=== PATIENT | male | born 1970 | race American Indian/Alaskan Native ===

== ENCOUNTER 2017-01-30 00:50 | Emergency (ER) | payer OTHER ==
--- NOTE | 2017-01-30 08:56 | Emergency Department Report ---
ED Abdominal Pain HPI - General Chief Complaint: Abdominal Pain Stated Complaint: ABDOMINAL PAIN Time Seen by Provider: 01/30/17 08:49 Source: patient Mode of arrival: Ambulatory Limitations: No Limitations - History of Present Illness Initial Comments: Patient complains of left lower quadrant abdominal pain since 4:30 yesterday. He stated he vomited yesterday but is no longer nauseated. He denies diarrhea. He thinks he might of had a fever but did not measure his temperature. Head no signs of GI bleeding. His pain is largely resolved at this time however. MD Complaint: abdominal pain -: Gradual Location: LLQ Radiation: none Migration to: no migration Severity: moderate Quality: aching Consistency: intermittent Improves With: nothing Worsens With: nothing Associated Symptoms: denies other symptoms, nausea, vomiting - Related Data Previous Rx's Medication Instructions Recorded Last Taken Type traMADol [Ultram] 50 mg PO Q6HR PRN #10 tablet 01/30/17 Unknown Rx Allergies Allergy/AdvReac Type Severity Reaction Status Date / Time No Known Allergies Allergy Unverified 01/30/17 08:24 ED Review of Systems ROS: Stated complaint: ABDOMINAL PAIN Other details as noted in HPI Constitutional: denies: chills, fever Eyes: denies: eye pain, eye discharge, vision change ENT: denies: ear pain, throat pain Respiratory: denies: cough, shortness of breath, wheezing Cardiovascular: denies: chest pain, palpitations Endocrine: no symptoms reported Gastrointestinal: as per HPI, abdominal pain, nausea, vomiting. denies: diarrhea Genitourinary: denies: urgency, dysuria Musculoskeletal: denies: back pain, joint swelling, arthralgia Skin: denies: rash, lesions Neurological: denies: headache, weakness, paresthesias Psychiatric: denies: anxiety, depression Hematological/Lymphatic: denies: easy bleeding, easy bruising ED Past Medical Hx - Past Medical History Previous Medical History?: No - Social History Smoking Status: Unknown if ever smoked - Medications Home Medications: Home Medications Medication Instructions Recorded Confirmed Last Taken Type traMADol [Ultram] 50 mg PO Q6HR PRN #10 tablet 01/30/17 Unknown Rx ED Physical Exam - General Limitations: No Limitations General appearance: alert, in no apparent distress - Head Head exam: Present: atraumatic, normocephalic - Eye Eye exam: Present: normal appearance. Absent: scleral icterus - ENT ENT exam: Present: normal exam, mucous membranes moist - Neck Neck exam: Present: normal inspection - Respiratory Respiratory exam: Present: normal lung sounds bilaterally. Absent: respiratory distress - Cardiovascular Cardiovascular Exam: Present: regular rate, normal rhythm. Absent: systolic murmur, diastolic murmur, rubs, gallop - GI/Abdominal GI/Abdominal exam: Present: soft, normal bowel sounds. Absent: distended, tenderness, guarding, rebound, rigid - Rectal Rectal exam: Present: deferred - Extremities Exam Extremities exam: Present: normal inspection - Back Exam Back exam: Present: normal inspection - Neurological Exam Neurological exam: Present: alert, oriented X3, CN II-XII intact. Absent: motor sensory deficit - Psychiatric Psychiatric exam: Present: normal affect, normal mood - Skin Skin exam: Present: warm, dry, intact, normal color. Absent: rash ED Course Vital Signs 01/30/17 01/30/17 01/30/17 01:05 07:29 07:30 Temperature 98.7 F Pulse Rate 76 46 L 50 L Respiratory 18 14 9 L Rate Blood Pressure 148/85 114/69 O2 Sat by Pulse 99 100 99 Oximetry 01/30/17 01/30/17 01/30/17 07:46 08:00 08:16 Temperature Pulse Rate 46 L 44 L 49 L Respiratory 16 10 L 13 Rate Blood Pressure 114/69 114/69 151/79 O2 Sat by Pulse 96 99 97 Oximetry 01/30/17 01/30/17 01/30/17 08:30 08:46 09:00 Temperature Pulse Rate 49 L 54 L Respiratory 17 13 Rate Blood Pressure 151/79 122/70 122/70 O2 Sat by Pulse 96 96 99 Oximetry 01/30/17 01/30/17 01/30/17 09:04 09:16 09:30 Temperature 98.3 F Pulse Rate 50 L 53 L Respiratory 17 17 Rate Blood Pressure 131/71 122/70 O2 Sat by Pulse 97 97 Oximetry 01/30/17 01/30/17 01/30/17 10:06 10:15 10:30 Temperature Pulse Rate 51 L 46 L 49 L Respiratory 16 17 13 Rate Blood Pressure 142/76 133/72 131/75 O2 Sat by Pulse 99 97 99 Oximetry 01/30/17 01/30/17 10:46 11:00 Temperature Pulse Rate 47 L 46 L Respiratory 20 17 Rate Blood Pressure 127/69 123/78 O2 Sat by Pulse 96 95 Oximetry - Reevaluation(s) Reevaluation #1: Patient requested discharge from the nurse. On my reexamination is asymptomatic and actually eating barbecued potato chips. He was quite desirous of leaving. His CT results were explained to him and the need for follow-up. 01/30/17 12:15 ED Medical Decision Making - EKG Data -: EKG Interpreted by Me EKG shows normal: sinus rhythm, axis, intervals, QRS complexes, ST-T waves Rate: bradycardia - EKG Data When compared to previous EKG there are: no significant change Interpretation: other (inverted T waves noted in standard lead 2 and aVF and inverted P-wave consistent with low atrial rhythm.) - Radiology Data Radiology results: report reviewed interpreted by me: CT showed prostatic hypertrophy but nothing acute. Critical care attestation.: If time is entered above; I have spent that time in minutes in the direct care of this critically ill patient, excluding procedure time. ED Disposition Clinical Impression: Left lower quadrant pain, Prostatic hypertrophy Disposition: DC-01 TO HOME OR SELFCARE Is pt being admited?: No Does the pt Need Aspirin: No Condition: Stable Instructions: Abdominal Pain (ED), Benign Prostatic Hypertrophy (ED) Additional Instructions: Further evaluation for your enlarged prostate is recommended. Have given the something for pain if necessary. Return to the emergency department any acute change or problem. Prescriptions: traMADol [Ultram] 50 mg PO Q6HR PRN #10 tablet PRN Reason: Pain Referrals: PRIMARY CARE, [Primary Care Provider] - 3-5 Days Time of Disposition: 12:18
[2017-01-30] MEDS ORDERED: NACL 0.9% 1000 ML 1,000 ML IV ONE (09:12)
--- NOTE | 2017-01-30 09:17 | XRay Report ---
ROUTINE CHEST, TWO VIEWS: HISTORY: Bradycardia. The trachea, heart, mediastinal contour, lung le and bony thorax are unremarkable. IMPRESSION: Unremarkable chest x-ray.
--- NOTE | 2017-01-30 10:15 | Cat Scan Report ---
FINAL REPORT EXAM: CT ABDOMEN PELVIS W CON HISTORY: left lower quadrant pain TECHNIQUE: CT of the abdomen and pelvis with IV contrast. Coronal and sagittal reconstructed imaging provided. PRIORS: None currently available. FINDINGS: ABDOMEN: Stomach: Unremarkable. Liver: Unremarkable. Gallbladder: Unremarkable. Spleen: Unremarkable. Pancreas: Unremarkable. Adrenals: Unremarkable. Kidneys: Subcentimeter low-attenuation lesion in the upper cortex of the left kidney may represent a cyst but is too small to accurately characterize. Kidneys demonstrate symmetrical cortical enhancement. No hydronephrosis. No suspicious lesions. There is no abdominal aortic aneurysm. IVC is unremarkable. There is no periaortic or retroperitoneal adenopathy or mass. Mild to moderate stool. Terminal ileum is normal. Appendix is unremarkable. Large and small bowel loops do not demonstrate wall thickening or inflammatory changes. No obstructive pattern. No free air or free fluid. PELVIS: Small amount of free fluid is present within the pelvis more so on the right. Mildly enlarged heterogeneous prostate with punctate calcification. Bladder is unremarkable. There is no pelvic mass or adenopathy. Inguinal regions are unremarkable. Bones: No suspicious osseous lesions on this limited examination of the skeleton. Metastatic disease better evaluated with bone scan. IMPRESSION: Probable subcentimeter cysts in the upper left kidney. Too small to accurately characterize. Small amount of free fluid in the pelvis. Nonspecific. Large heterogeneous prostate. Otherwise, no acute findings.
[2017-01-30 12:32] VITALS: BP 128/86
== END 2017-01-30 12:37 | disposition home or self-care (01) ==
LOC: ED 00:50
DX: N40.0 Benign prostatic hyperplasia without lower urinary tract symptoms (principal); R10.32 Left lower quadrant pain
CPT/HCPCS: 36415; 71020; 74177; 84484; 93005; 93010; 96360; 99285; Q9967

== ENCOUNTER 2020-07-14 05:48 | Emergency (ER) | payer OTHER ==
--- NOTE | 2020-07-14 05:58 | Event Note ---
ED Screening Note Date of service: 07/14/20 Time: 05:56 ED Screening Note: Patient presents with suprapubic pain and dysuria x1 month. Pain described as sharp achy radiating from left flank to left groin. Patient denies fevers or chills there is no scrotal swelling or history of hernia. Patient is tolerating p.o. intake without nausea vomiting. T-max 97 7. This initial assessment/diagnostic orders/clinical plan/treatment(s) is/are subject to change based on patients health status, clinical progression and re- assessment by fellow clinical providers in the ED. Further treatment and workup at subsequent clinical providers discretion. Patient/guardian urged not to elope from the ED as their condition may be serious if not clinically assessed and managed. Initial orders include: cbc, cmp, ua
[2020-07-14 06:28] LABS: Basophils # (Auto) 0.1 K/mm3 (0.0-0.1); Basophils % (Auto) 0.5 % (0.0-1.8); Eosinophils # (Auto) 0.1 K/mm3 (0.0-0.4); Eosinophils % (Auto) 0.4 % (0.0-4.3); Hematocrit 44.5 % (35.5-45.6); Hemoglobin 14.1 gm/dl (11.8-15.2); Lymphocytes # (Auto) 1.2 K/mm3 (1.2-5.4); Lymphocytes % (Auto) 7.5 % (13.4-35.0); Mean Corpuscular HGB Conc 32 % (32-34); Mean Corpuscular Volume 82 fl (84-94); Monocytes # (Auto) 1.3 K/mm3 (0.0-0.8); Monocytes % (Auto) 8.1 % (0.0-7.3); Platelet Count 409 K/mm3 (140-440); Red Cell Distribution Width 13.6 % (13.2-15.2)
[2020-07-14 06:34] LABS: Bilirubin,Urine NEG (Negative); Blood,Urine LG (Negative); Color,Urine Amber (Yellow); Urobilinogen,Urine < 2.0 mg/dL (<2.0)
[2020-07-14 06:36] LABS: RBC,Urine > 182.0 /HPF (0.0-6.0); WBC,Urine > 182.0 /HPF (0.0-6.0)
[2020-07-14 06:42] LABS: Alanine Aminotransferase 19 units/L (7-56); Albumin 4.1 g/dL (3.9-5); BUN/Creatinine Ratio 10; Blood Urea Nitrogen 10 mg/dL (9-20); Calcium 8.8 mg/dL (8.4-10.2); Hemolysis Index 4
[2020-07-14] MEDS ORDERED: cefTRIAXone/NS 1 GM/50 ML 1 GM/50 ML BAG IV ONE (09:37)
[2020-07-14] MEDS ORDERED: SODIUM CHLORIDE 0.9% 1000 ML 1,000 ML IV ONE (09:37)
[2020-07-14 09:39] VITALS: BP 124/70
[2020-07-14] MEDS ORDERED: ONDANSETRON 4 MG/2 ML INJ IV ONE (09:52)
[2020-07-14] MEDS ORDERED: MORPHINE 2 MG/1 ML INJ IV ONE (09:52)
--- NOTE | 2020-07-14 09:56 | Emergency Department Report ---
ED General Adult HPI - General Chief complaint: Urogenital-Male Stated complaint: BLOOD IN URINE/LT SIDE PAIN Time Seen by Provider: 07/14/20 09:35 Source: patient Mode of arrival: Ambulatory Limitations: No Limitations - History of Present Illness Initial comments: This is a 49-year-old male who states that he has had no back pain whatsoever neither left nor right-sided back pain. He does not report active right testicular pain either. He vaguely states that he had some discomfort in the right testicular area and that he "does not know if there is swelling. He denies urethral discharge. He states he has not seen a discharge. Patient is now stating that the blood in his urine that he saw today was a completely incidental thing not causing him to come to the hospital. On my encounter the patient is quite fixated on his left hip and thigh pain. He states he has had this for 3 months. Apparently he did go to an urgent care clinic approximately 06/29/2020. He was given a nonsteroidal and a muscle relaxer. He states he had no diagnostic imaging at that time. I did see the patient in 2017. He did have CT of his abdomen and pelvis at that time. It showed prostatic hypertrophy. The patient was referred to urology. There was no evidence of kidney stone at that time. -: month(s) (Left hip pain for months) Location: left Radiation: other (Down thigh) Severity scale (0 -10): 9 Quality: aching Consistency: intermittent Improves with: none Worsens with: none Associated Symptoms: denies other symptoms Treatments Prior to Arrival: other (See above at urgent care clinic) - Related Data Previous Rx's Medication Instructions Recorded Last Taken Type traMADoL [Ultram] 50 mg PO Q6HR PRN #10 tablet 01/30/17 Unknown Rx Ciprofloxacin HCl [Ciprofloxacin 500 mg PO BID #40 tablet 07/14/20 Unknown Rx TAB] HYDROcodone/APAP 5-325 [[place] 1 each PO Q6HR PRN #7 tablet 07/14/20 Unknown Rx 5/325] Allergies Allergy/AdvReac Type Severity Reaction Status Date / Time No Known Allergies Allergy Unverified 01/30/17 08:24 ED Review of Systems ROS: Stated complaint: BLOOD IN URINE/LT SIDE PAIN Other details as noted in HPI Constitutional: denies: chills, fever Eyes: denies: eye pain, vision change ENT: denies: ear pain, throat pain Respiratory: denies: cough, shortness of breath Cardiovascular: denies: chest pain, palpitations Endocrine: no symptoms reported Gastrointestinal: denies: abdominal pain, nausea, vomiting, diarrhea Genitourinary: hematuria, testicular pain (Vaguely). denies: urgency, dysuria, frequency, discharge Musculoskeletal: as per HPI. denies: back pain, joint swelling, arthralgia Skin: denies: rash, lesions Neurological: denies: headache, weakness, paresthesias Psychiatric: denies: anxiety, depression Hematological/Lymphatic: denies: easy bleeding, easy bruising ED Past Medical Hx - Past Medical History Previous Medical History?: No - Surgical History Past Surgical History?: Yes Additional Surgical History: Lung collapsed - Social History Smoking Status: Current Every Day Smoker - Medications Home Medications: Home Medications Medication Instructions Recorded Confirmed Last Taken Type traMADoL [Ultram] 50 mg PO Q6HR PRN #10 tablet 01/30/17 Unknown Rx Ciprofloxacin HCl [Ciprofloxacin 500 mg PO BID #40 tablet 07/14/20 Unknown Rx TAB] HYDROcodone/APAP 5-325 [[place] 1 each PO Q6HR PRN #7 tablet 07/14/20 Unknown Rx 5/325] ED Physical Exam - General Limitations: No Limitations General appearance: alert, in no apparent distress - Head Head exam: Present: atraumatic, normocephalic - Eye Eye exam: Present: normal appearance. Absent: scleral icterus - ENT ENT exam: Present: mucous membranes moist - Neck Neck exam: Present: normal inspection - Respiratory Respiratory exam: Present: normal lung sounds bilaterally. Absent: respiratory distress - Cardiovascular Cardiovascular Exam: Present: regular rate, normal rhythm. Absent: systolic murmur, diastolic murmur, rubs, gallop - GI/Abdominal GI/Abdominal exam: Present: soft, normal bowel sounds - Rectal Rectal exam: Present: deferred - Extremities Exam Extremities exam: Present: normal inspection - Back Exam Back exam: Present: normal inspection - Neurological Exam Neurological exam: Present: alert, oriented X3 - Psychiatric Psychiatric exam: Present: normal affect, normal mood - Skin Skin exam: Present: warm, dry, intact, normal color. Absent: rash ED Course Vital Signs 07/14/20 07/14/20 07/14/20 08:20 09:37 10:28 Pulse Rate 74 Respiratory 16 16 16 Rate Blood Pressure 124/70 [Left] O2 Sat by Pulse 100 100 Oximetry - Reevaluation(s) Reevaluation #1: A CT of the abdomen and pelvis was ordered considering the complaint of flank pain, pyuria and hematuria. The patient refused this examination. 07/14/20 10:00 Reevaluation #2: We will proceed with antibiotics fluids and diagnostic imaging to include above ordered. The patient refused CT examination. 07/14/20 10:00 Reevaluation #3: Resting comfortably. 07/14/20 14:32 Reevaluation #4: Patient resting comfortably. Appropriate for outpatient follow-up. He did confirm that he has [employer] HMO. I directed him to find out who his primary care provider is. He was additionally referred to [facility]. 07/14/20 14:33 ED Medical Decision Making - Lab Data Result diagrams: 07/14/20 06:05 07/14/20 06:05 Laboratory Results - last 24 hr 07/14/20 07/14/20 07/14/20 06:05 06:05 06:14 WBC 15.5 H RBC 5.40 H Hgb 14.1 Hct 44.5 MCV 82 L MCH 26 L MCHC 32 RDW 13.6 Plt Count 409 Lymph % (Auto) 7.5 L [place] % (Auto) 8.1 H Eos % (Auto) 0.4 Baso % (Auto) 0.5 Lymph # (Auto) 1.2 [place] # (Auto) 1.3 H Eos # (Auto) 0.1 Baso # (Auto) 0.1 Seg Neutrophils % 83.5 H Seg Neutrophils # 12.9 H Sodium 139 Potassium 4.1 Chloride 103.0 Carbon Dioxide 24 Anion Gap 16 BUN 10 Creatinine 1.0 Estimated GFR > 60 BUN/Creatinine Ratio 10 Glucose 113 H Calcium 8.8 Total Bilirubin 0.30 AST 21 ALT 19 Alkaline Phosphatase 71 Total Protein 7.0 Albumin 4.1 Albumin/Globulin Ratio 1.4 Urine Color Adia Urine Turbidity Cloudy Urine pH 6.0 Ur Specific [place] 1.012 Urine Protein 100 mg/dl Urine Glucose (UA) Neg Urine Ketones Neg Urine Blood Lg Urine Nitrite Pos Urine Bilirubin Neg Urine Urobilinogen < 2.0 Ur Leukocyte Esterase Lg Urine WBC (Auto) > 182.0 H Urine RBC (Auto) > 182.0 Urine WBC Clumps 3+ Urine Yeast (Budding) 2+ - Radiology Data Radiology results: report reviewed Venous Doppler negative for DVT, Doppler of the testes consistent with right epididymitis, x-ray of the femur no osseous abnormality. Critical care attestation.: If time is entered above; I have spent that time in minutes in the direct care of this critically ill patient, excluding procedure time. ED Disposition Clinical Impression: Acute epididymitis Chronic leg pain Qualifiers: Laterality: left Qualified Code(s): M79.605 - Pain in left leg; G89.29 - Other chronic pain Disposition: TO HOME OR SELFCARE Is pt being admited?: No Does the pt Need Aspirin: No Condition: Stable Instructions: Epididymitis (ED) Additional Instructions: Follow-up with primary care and urologist. Return to the emergency department any acute change or problem. Rx as directed. Prescriptions: Ciprofloxacin HCl [Ciprofloxacin TAB] 500 mg PO BID #40 tablet HYDROcodone/APAP 5-325 [[place] 5/325] 1 each PO Q6HR PRN #7 tablet PRN Reason: Pain Referrals: PRIMARY CAREMD [Primary Care Provider] - 3-5 Days Forms: STI Treatment and Prevention Time of Disposition: 14:24
--- NOTE | 2020-07-14 10:54 | Vascular Lab Report ---
Left lower extremity Doppler venous ultrasound INDICATION: Pain FINDINGS: Left common femoral vein, superficial femoral vein and popliteal vein have normal compressi bility and phasic flow. IMPRESSION: No evidence for DVT. Signer Name: Jordy Rolon MD Signed: 07/14/2020 10:49 AM Workstation Name: [id number]
--- NOTE | 2020-07-14 11:32 | Ultrasound Report ---
ULTRASOUND TESTICULAR DOPPLER COMPLETE HISTORY: Right testicular pain, pyuria, hematuria COMPARISON: None. TECHNIQUE: Grayscale ultrasound with color and spectral Doppler imaging. FINDINGS: The right testicle measures 4.4 x 2.0 x 3.7 cm. The left testicle measures 4.3 x 2.4 x 3.2 cm. Both t esticles are slightly heterogeneous but no evidence for mass, cyst or calcifications. The right epididymis is enlarged, heterogeneous and hyperemic compared to the left epididymis. Small bilateral hydroceles are identified. No significant varicocele. Spectral Doppler waveforms demonstrate arterial flow to both testes. IMPRESSION: Findings consistent with right epididymitis. Small bilateral hydroceles. Signer Name: Michael Bragg Jr, MD Signed: 07/14/2020 11:28 AM Workstation Name: [id number]
--- NOTE | 2020-07-14 11:38 | XRay Report ---
XR femur 2+V LT INDICATION / CLINICAL INFORMATION: L hip/thigh pain. COMPARISON: None available. FINDINGS: BONES/JOINT(S): No acute fracture or subluxation. No significant degenerative changes. SOFT TISSUES: No significant abnormality. ADDITIONAL FINDINGS: None. Signer Name: Willem Quintanilla MD Signed: 07/14/2020 11:34 AM Workstation Name: [id number]
== END 2020-07-14 15:45 | disposition home or self-care (01) ==
LOC: ED 05:48
DX: N45.1 Epididymitis (principal); M79.605 Pain in left leg; G89.29 Other chronic pain; F17.200 Nicotine dependence, unspecified, uncomplicated; Z79.899 Other long term (current) drug therapy
CPT/HCPCS: 36415; 73552; 80053; 81001; 85025; 87086; 93971; 93975; 96365; 96375; 99284; J0696; J2270; J2405; J7030; 87076; 87186